=== PATIENT | male | born 1950 ===

== ENCOUNTER 2020-12-31 15:58 | Outpatient (CLI) | payer OTHER, MEDICARE, SELFPAY | END 2020-12-31 15:59 | disposition home or self-care (01) | LOC: ANHCOVIDVC 15:58 | PROVIDERS: PCP Internal Medicine | DX: Z23 Encounter for immunization (principal) | CPT/HCPCS: 0001A; 91300 ==

== ENCOUNTER 2021-01-21 15:54 | Outpatient (CLI) | payer OTHER, MEDICARE, SELFPAY | END 2021-01-21 15:55 | disposition home or self-care (01) | LOC: ANHCOVIDVC 15:54 | PROVIDERS: PCP Internal Medicine | DX: Z23 Encounter for immunization (principal) | CPT/HCPCS: 0002A; 91300 ==

== ENCOUNTER 2021-05-01 10:56 | Outpatient (CLI) | payer OTHER, SELFPAY ==
[2021-05-01 12:58] LABS: Basophils Percent Auto 0.4 % (0.2-1.2); Eosinophils Absolute Auto 0.2 K/mm3 (0-0.3); Eosinophils Percent Auto 2.2 % (0-4.4); Hematocrit 42.4 % (42.0-52.0); Hemoglobin 13.6 g/dL (14.0-18.0); Immature Granulocyte Absolute 0.05 K/mm3 (0.00-0.031); Immature Granulocyte Percent A 0.5 % (0-0.5); Lymphocytes Absolute Auto 1.72 K/mm3 (0.9-3.2); Lymphocytes Percent Auto 18.1 % (18.3-44.2); Mean Corpuscular HGB Conc 32.1 g/dl (32-36); Mean Corpuscular Hemoglobin 29.6 pg (26-34); Mean Corpuscular Volume 92.2 fl (80-100); Mean Platelet Volume 9.4 fl (7.4-10.4); Monocytes Percent Auto 10.1 % (2.6-8.5); Neutrophils Absolute Auto 6.5 K/mm3 (1.3-6.7); Neutrophils Percent Auto 68.7 % (45.5-73.1); Platelet Count Result 340 k/mm3 (150-375); Red Cell Distribution Width 13.6 % (11.5-14.5); White Blood Count 9.5 K/mm3 (4.5-10.0)
[2021-05-01 13:09] LABS: Alanine Aminotransferase 18 U/L (4-50); Albumin Level 4.2 g/dL (3.5-5.1); Alkaline Phosphatase 84 U/L (38-126); Anion Gap 12 mmol/L (8-16); Aspartate Amino Transferase 19 U/L (17-59); Bilirubin,Total 0.5 mg/dL (0.2-1.3); Blood Urea Nitrogen 13 mg/dL (9-20); Calcium 8.9 mg/dL (8.4-10.2); Carbon Dioxide 25 mmol/L (22-30); Chloride 102 mmol/L (98-107); Cholesterol 102 mg/dL (0-200); Estimated Glomerular Filt Rate > 60; Glucose 128 mg/dL (75-110); HDL Direct 30 mg/dL; Potassium 4.3 mmol/L (3.4-5.0); Sodium 139 mmol/L (137-145); Triglycerides 145 mg/dL (<150)
[2021-05-01 13:21] LABS: Hemoglobin A1C 7.5 % (<5.7); LDL Cholesterol Direct 44 mg/dL
[2021-05-01 13:40] LABS: Creatinine Urine 98.9 mg/dL
[2021-05-01 13:42] LABS: MALB Creatinine Ratio < 6.1 mg/g (0-30); Microalbumin Urine Random < 6.0 mg/L (0-16.7); Prostate Specific Antigen 2.2 ng/mL (< OR = 4.0)
== END 2021-05-01 10:57 | disposition home or self-care (01) ==
LOC: ANHWCLAB 11:04
PROVIDERS: PCP Internal Medicine; Visit Provider Internal Medicine
DX: E66.01 Morbid (severe) obesity due to excess calories (principal); E11.69 Type 2 diabetes mellitus with other specified complication; E78.5 Hyperlipidemia, unspecified; I10 Essential (primary) hypertension; E55.9 Vitamin D deficiency, unspecified; E11.8 Type 2 diabetes mellitus with unspecified complications; Z12.5 Encounter for screening for malignant neoplasm of prostate
CPT/HCPCS: 36415; 80053; 80061; 82043; 82306; 83036; 84153; 85025; G0103

== ENCOUNTER 2022-01-01 14:30 | Outpatient (CLI) | payer OTHER, SELFPAY ==
[2022-01-01 15:43] LABS: Alanine Aminotransferase 21 U/L (4-50); Albumin Level 4.7 g/dL (3.5-5.1); Alkaline Phosphatase 80 U/L (38-126); Anion Gap 11 mmol/L (8-16); Aspartate Amino Transferase 27 U/L (17-59); Bilirubin,Total 0.6 mg/dL (0.2-1.3); Blood Urea Nitrogen 15 mg/dL (9-20); Calcium 8.7 mg/dL (8.4-10.2); Carbon Dioxide 22 mmol/L (22-30); Chloride 104 mmol/L (98-107); Estimated Glomerular Filt Rate > 60; Glucose 132 mg/dL (65-110); Potassium 4.6 mmol/L (3.4-5.0); Sodium 137 mmol/L (137-145)
[2022-01-01 16:03] LABS: Hemoglobin A1C 7.9 % (<5.7)
[2022-01-01 20:09] LABS: Creatinine Urine 57.6 mg/dL
[2022-01-01 20:14] LABS: Microalbumin Urine Random 9.2 mg/L (0-16.7)
== END 2022-01-01 14:31 | disposition home or self-care (01) ==
LOC: ANHLAB 14:32
PROVIDERS: PCP Internal Medicine; Visit Provider Internal Medicine
DX: E11.8 Type 2 diabetes mellitus with unspecified complications (principal); I10 Essential (primary) hypertension
CPT/HCPCS: 36415; 80053; 82043; 83036

== ENCOUNTER 2022-07-09 13:54 | Outpatient (CLI) | payer OTHER, SELFPAY ==
[2022-07-09 14:55] LABS: Hemoglobin A1C 7.6 % (<5.7)
[2022-07-09 15:19] LABS: Vitamin D 25 Hydroxy 46.7 ng/mL
[2022-07-09 16:55] LABS: Alanine Aminotransferase 21 U/L (6-50); Albumin Level 4.2 g/dL (3.5-5.1); Alkaline Phosphatase 85 U/L (38-126); Anion Gap 12 mmol/L (8-16); Aspartate Amino Transferase 20 U/L (17-59); Bilirubin,Total 0.6 mg/dL (0.2-1.3); Blood Urea Nitrogen 13 mg/dL (9-20); Calcium 8.8 mg/dL (8.4-10.2); Carbon Dioxide 23 mmol/L (22-30); Chloride 105 mmol/L (98-107); Cholesterol 110 mg/dL (0-200); Estimated Glomerular Filt Rate > 60; Glucose 121 mg/dL (65-110); HDL Direct 29 mg/dL; Potassium 4.3 mmol/L (3.4-5.0); Sodium 140 mmol/L (137-145); Triglycerides 144 mg/dL (<150)
[2022-07-09 17:14] LABS: LDL Cholesterol Direct 45 mg/dL
[2022-07-09 18:05] LABS: Prostate Specific Antigen 2.3 ng/mL (< OR = 4.0)
== END 2022-07-09 13:55 | disposition home or self-care (01) ==
LOC: ANHLAB 14:03
PROVIDERS: PCP Internal Medicine; Visit Provider Nurse Practitioner
DX: Z12.5 Encounter for screening for malignant neoplasm of prostate (principal); E11.9 Type 2 diabetes mellitus without complications; E55.9 Vitamin D deficiency, unspecified; E78.5 Hyperlipidemia, unspecified
CPT/HCPCS: 36415; 80053; 80061; 82306; 83036; 84153; G0103